=== PATIENT | male | born 1955 | race Caucasian/White ===

== ENCOUNTER 2016-07-02 10:22 | Inpatient (IN) | payer BC ==
[~2016-07-02] VITALS: Ht 175.3 cm; Wt 84.9 kg
[2016-07-02] MEDS ORDERED: NITROGLYCERIN 0.4 MG SL TAB SL ONE (10:53)
[2016-07-02] MEDS ORDERED: NITROGLYCERIN 0.4 MG SL TAB SL PRN ×2 (11:00→13:45)
[2016-07-02] MEDS ORDERED: MORPHINE SULF INJ 2 MG/ML SYRINGE 1ML IV ONE (11:00)
[2016-07-02] MEDS ORDERED: ASPirin 81 mg TAB PO ONE (11:00)
[2016-07-02] MEDS ORDERED: ONDANSETRON HCL 4 MG/2 ML VIAL IV ONE (11:00)
[2016-07-02 11:10] LABS: Basophils # (auto) 0 uL; Basophils % (auto) 0.4 % (0.0-2.0); DEFINITIVE VIEW TRANSMISSION; Eosinophils # (auto) 0.1 uL; Eosinophils % (auto) 1.2 % (0.0-7.0); Hematocrit 45.8 % (41.0-53.0); Hemoglobin 14.6 g/dL (13.5-17.5); Mean Corpuscular Hemoglobin 25.5 pg (28.0-32.0); Mean Corpuscular Hgb Conc. 31.8 g/dL (32.0-36.0); Mean Corpuscular Volume 80.2 fL (80.0-100.0); Mean Platelet Volume 7.3 fL (7.4-10.4); Monocytes # (auto) 0.6 uL; Neutrophils # (auto) 6.2 uL; Neutrophils % (auto) 62.4 % (37.0-80.0); Platelet Count (auto) 484 10^3/uL (140-450)
[2016-07-02 11:23] LABS: Albumin 4.3 g/dL (3.4-5.0); BUN/Creatinine Ratio 10.5; Bilirubin, Total 0.6 mg/dL (0.2-1.0); Calcium 9.5 mg/dL (8.5-10.1); Potassium 3.4 mmol/L (3.5-5.1); Total Protein 8.5 g/dL (6.4-8.2)
[2016-07-02 12:41] LABS: B-Type Natriuretic Peptide 19.87 pg/mL (0-100)
[2016-07-02] MEDS ORDERED: MORPHINE SULF INJ 2 MG/ML SYRINGE 1ML IV PRN (13:45)
[2016-07-02] MEDS ORDERED: TEMAZEPAM 15 MG CAP PO PRN (13:45)
[2016-07-02] MEDS ORDERED: PROMETHAZINE HCL 25 MG/ML 1ML IV PRN (13:45)
[2016-07-02] MEDS ORDERED: LACTULOSE 20Gm/30ML SOLN PO PRN (13:45)
[2016-07-02] MEDS ORDERED: ACETAMINOPHEN 500 MG TAB PO PRN (13:45)
[2016-07-02] MEDS ORDERED: LORazepam 0.5 MG TAB PO PRN (13:45)
[2016-07-02] MEDS ORDERED: HYDROcodone-ACET 5/325MG TAB PO PRN (13:45)
[2016-07-02] MEDS: SODIUM CHLORIDE 0.9% 1,000 ML IV SCH (13:57)
[2016-07-02] MEDS ORDERED: OMEP20CA5 OR (18:50)
[2016-07-02] MEDS ORDERED: BENA20TA PO (18:55)
[2016-07-02] MEDS ORDERED: LOVA20TA4 PO (18:55)
[2016-07-02 22:00] VITALS: BP 129/87
[2016-07-02] MEDS: FAMOTIDINE 20 MG TAB PO SCH (22:23)
[2016-07-02] MEDS: ATORVASTATIN 20 MG TAB PO SCH (22:23)
[2016-07-02] MEDS: METOPROLOL TARTRATE 25 MG TAB PO SCH (22:23)
[2016-07-03] VITALS (7 sets, daily range): BP systolic 117–126; BP diastolic 67–80
[2016-07-03] MEDS: SODIUM CHLORIDE 0.9% 1,000 ML IV SCH ×3 (00:01→22:47)
[2016-07-03 07:27] LABS: Cholesterol 175 mg/dL (<200); HDL Cholesterol 49 mg/dL (40-59); LDL Cholesterol 109 mg/dL (<100); Triglycerides 136 mg/dL (<150)
[2016-07-03] MEDS ORDERED: ADENOSINE 70 MG in GIVE UN-DILUTED 0 ML IV STA (08:44)
[2016-07-03] MEDS: ASPirin 81 mg TAB PO SCH (10:36)
[2016-07-03] MEDS: NITROGLYCERIN 0.2MG/HR TOPICAL PATCH TD SCH (10:37)
[2016-07-03] MEDS: FAMOTIDINE 20 MG TAB PO SCH ×2 (10:37→22:43)
[2016-07-03] MEDS: METOPROLOL TARTRATE 25 MG TAB PO SCH ×2 (10:37→22:42)
[2016-07-03] MEDS ORDERED: CLOPIDOGREL 300 MG TAB PO ONE (18:30)
[2016-07-03] MEDS: ENOXAPARIN SOD 80 MG/0.8ML SYRINGE SC SCH (19:34)
[2016-07-03] MEDS: ATORVASTATIN 20 MG TAB PO SCH (22:42)
[2016-07-04 05:00] VITALS: BP 134/84
[2016-07-04] MEDS: ENOXAPARIN SOD 80 MG/0.8ML SYRINGE SC SCH ×2 (05:27→18:29)
[2016-07-04] MEDS: SODIUM CHLORIDE 0.9% 1,000 ML IV SCH ×2 (05:28→23:21)
[2016-07-04 08:25] VITALS: BP 136/79
[2016-07-04] MEDS: NITROGLYCERIN 0.2MG/HR TOPICAL PATCH TD SCH (10:00)
[2016-07-04 10:10] LABS: INR 1.03 (0.9-1.15); Prothrombin Time 10.6 sec (9.37-12.3)
[2016-07-04 10:23] VITALS: BP 136/79
[2016-07-04] MEDS: FAMOTIDINE 20 MG TAB PO SCH ×2 (10:39→21:41)
[2016-07-04] MEDS: ASPirin 81 mg TAB PO SCH (10:39)
[2016-07-04] MEDS: CLOPIDOGREL BISULFATE 75 MG TAB PO SCH (10:39)
[2016-07-04] MEDS: METOPROLOL TARTRATE 25 MG TAB PO SCH ×2 (10:40→21:43)
[2016-07-04 12:41] VITALS: BP 130/93
[2016-07-04] MEDS ORDERED: LIDOCAINE 2%HCL (LOCAL ANESTH.) INJ 20ML MDV ONE (15:09)
[2016-07-04] MEDS ORDERED: IOHEXOL 350 MG/ML 100ML IJ ONE ×2 (15:09→16:23)
[2016-07-04] MEDS ORDERED: MIDAZOLAM HCL 1MG/1ML-2 ML VIAL ONE (15:17)
[2016-07-04] MEDS ORDERED: ANGIOMAX 250 MG VIAL IV ONE (15:18)
[2016-07-04] MEDS ORDERED: fentaNYL CITRATE 100 MCG/2 ML VL ONE (15:18)
[2016-07-04] MEDS ORDERED: SODIUM CHL 0.9% 50 ML ONE (15:18)
[2016-07-04] MEDS ORDERED: EPTIFIBATIDE INJ (2MG/ML) 10ML VIAL IV ONE (16:11)
[2016-07-04] MEDS ORDERED: TICAGRELOR 90 MG TAB ONE (16:13)
[2016-07-04] MEDS ORDERED: EPTIFIBATIDE DRIP(0.75MG/ML) 100 ML IV ONE (16:27)
[2016-07-04] MEDS ORDERED: ATROPINE SULF 0.5 MG/5ML SYR ONE (16:55)
[2016-07-04 20:00] VITALS: BP 144/70
[2016-07-04] MEDS: MORPHINE SULF INJ 2 MG/ML SYRINGE 1ML IV PRN (21:35)
[2016-07-04] MEDS: ATORVASTATIN 20 MG TAB PO SCH (21:42)
[2016-07-04 21:45] VITALS: BP 144/70
[2016-07-05] MEDS: MORPHINE SULF INJ 2 MG/ML SYRINGE 1ML IV PRN ×2 (01:40→05:49)
[2016-07-05 04:50] VITALS: BP 135/76
[2016-07-05] MEDS: ENOXAPARIN SOD 80 MG/0.8ML SYRINGE SC SCH (07:03)
[2016-07-05 08:38] VITALS: BP 140/77
[2016-07-05] MEDS: NITROGLYCERIN 0.2MG/HR TOPICAL PATCH TD SCH (10:00)
[2016-07-05] MEDS: METOPROLOL TARTRATE 25 MG TAB PO SCH (10:10)
[2016-07-05] MEDS: ASPirin 81 mg TAB PO SCH (10:10)
[2016-07-05] MEDS: CLOPIDOGREL BISULFATE 75 MG TAB PO SCH (10:11)
[2016-07-05] MEDS: FAMOTIDINE 20 MG TAB PO SCH (10:11)
[2016-07-05 13:02] VITALS: BP 135/68
[2016-07-05] MEDS: SODIUM CHLORIDE 0.9% 1,000 ML IV SCH (13:31)
== END 2016-07-05 13:55 | disposition home or self-care (01) | DRG 247 ==
LOC: ER 10:24 → TELE 10:25 → TELE-E-ADS 15:29 → TELE-CENTR 16:41
PROVIDERS: ADMIT Internal Medicine; ATTEND Internal Medicine
PROC: 027034Z Dilation of Coronary Artery, One Artery with Drug-eluting Intraluminal Device, Percutaneous Approach (ICD-10-PCS; principal; 2016-07-04)
PROC: 4A023N7 Measurement of Cardiac Sampling and Pressure, Left Heart, Percutaneous Approach (ICD-10-PCS; 2016-07-04)
PROC: B2111ZZ Fluoroscopy of Multiple Coronary Arteries using Low Osmolar Contrast (ICD-10-PCS; 2016-07-04)
DX: I21.4 Non-ST elevation (NSTEMI) myocardial infarction (principal); E87.6 Hypokalemia; E66.01 Morbid (severe) obesity due to excess calories; I25.10 Atherosclerotic heart disease of native coronary artery without angina pectoris; I73.9 Peripheral vascular disease, unspecified; E78.5 Hyperlipidemia, unspecified; I10 Essential (primary) hypertension; Z82.49 Family history of ischemic heart disease and other diseases of the circulatory system; Z83.3 Family history of diabetes mellitus; Z88.1 Allergy status to other antibiotic agents; Z98.890 Other specified postprocedural states; Z85.820 Personal history of malignant melanoma of skin; Z68.27 Body mass index [BMI] 27.0-27.9, adult
CPT/HCPCS: 36415; 71010; 78452; 80053; 80061; 82550; 83880; 84484; 85025; 85379; 85610; 85652; 86141; 92928; 93005; 93017; 93458; 96374; 96375; G0434; J0153; J0461; J2250; J2405

== ENCOUNTER → 2016-07-14 | Outpatient (CLI) | payer BC ==
[~2016-07-14] MED LIST: BENA20TA PO; LOVA20TA4 PO; OMEP20CA5 OR
[2016-07-14 12:15] LABS: Basophils # (auto) 0 uL; Basophils % (auto) 0.5 % (0.0-2.0); Eosinophils # (auto) 0.1 uL; Eosinophils % (auto) 1.6 % (0.0-7.0); Hematocrit 40.2 % (41.0-53.0); Hemoglobin 13.3 g/dL (13.5-17.5); Lymphocytes # (auto) 1.4 uL; Lymphocytes % (auto) 16.6 % (10.0-50.0); Mean Corpuscular Hgb Conc. 33.1 g/dL (32.0-36.0); Mean Corpuscular Volume 81.7 fL (80.0-100.0); Mean Platelet Volume 7.3 fL (7.4-10.4); Monocytes # (auto) 0.4 uL; Monocytes % (auto) 4.3 % (0.0-12.0); Neutrophils # (auto) 6.3 uL; Platelet Count (auto) 474 10^3/uL (140-450); Red Cell Distribution Width 16.5 % (11.6-16.0); White Blood Cell 8.2 10^3/uL (4.4-10.8)
[2016-07-14 13:03] LABS: BUN/Creatinine Ratio 16.9; Calcium 9.6 mg/dL (8.5-10.1); Potassium 4.2 mmol/L (3.5-5.1)
== END | disposition home or self-care (01) ==
LOC: LAB 09:34
PROVIDERS: ATTEND Internal Medicine Cardiovascular Disease
DX: I10 Essential (primary) hypertension (principal); D64.9 Anemia, unspecified
CPT/HCPCS: 36415; 80048; 85025